=== PATIENT | female | born 1970 | race Caucasian/White ===

== ENCOUNTER 2022-07-05 11:19 | Emergency (ER) | payer MEDICAID, SELFPAY ==
[2022-07-05 11:32] VITALS: BP 126/76; PULSE 91; RESP 18; TEMP 36.7; O2SAT 98; BMI 28.1
[2022-07-05 11:44] VITALS: BP 126/76; PULSE 91; RESP 18; TEMP 36.7; O2SAT 98
== END 2022-07-05 11:46 | disposition left against medical advice (07) ==
LOC: ER 11:34 → UTC 11:34
PROVIDERS: Emergency Provider Nurse Practitioner Family
DX: Z53.21 Procedure and treatment not carried out due to patient leaving prior to being seen by health care provider (principal)

== ENCOUNTER 2023-04-15 17:42 | Emergency (ER) | payer MEDICAID, SELFPAY ==
[2023-04-15 17:43] VITALS: BP 120/72; PULSE 96; RESP 18; TEMP 36.7; O2SAT 98; BMI 27.4
--- NOTE | 2023-04-15 17:56 | XR_ITS ---
PROCEDURE INFORMATION: Exam: XR Left Hip Exam date and time: 04/15/2023 5:52 PM Age: 53 years old Clinical indication: Injury or trauma; Fall; Blunt trauma (contusions or hematomas); Left; Hip TECHNIQUE: Imaging protocol: Radiologic exam of the left hip. Views: 2 or 3 views hip with pelvis when performed. Total images: 3 COMPARISON: No relevant prior studies available. FINDINGS: Bones/joints: No evidence of acute fracture. No evidence of acute dislocation. Soft tissues: Soft tissue swelling is present. IMPRESSION: 1. Soft tissue swelling is present. 2. No evidence of acute fracture. 3. No evidence of acute dislocation.
--- NOTE | 2023-04-15 18:02 | HMH.EDGENADL ---
Discharge Plan Disposition Patient Disposition: Home, Self-Care Referrals Follow up/Referrals: Provider,Referral, MD [Primary Care Provider] - See instructions Activity Restrictions/Add. Instructions Additional Instructions/Restrictions: No evidence of fracture or dislocation on your x-rays today please take ibuprofen and use ice and rest the area as needed. You may follow-up with our orthopedic surgeon in 1 to 2 weeks if not significantly improving. Clinical Impressions Clinical Impression: Strain of left hip, Contusion of hip, left Discharge ED Provider: Karis Middleton General Adult HPI General Chief complaint: PAIN Stated complaint: [id number] fell and injured lt hip Time Seen by Provider: 04/15/23 18:02 Mode of Arrival: Ambulatory Source of Information: Patient Limitations: No Limitations Description of Symptoms (Recalled from ER Triage Doc. by RN): PT REPORTS FALL OFF 2 FOOT TALL PORCH, 2 DAYS AGO. REPORTS LEFT HIP PAIN. PT HAS AMBULATED History of Present Illness HPI narrative: Patient is a 53-year-old female who fell off of a porch several feet few days ago has persistent left hip pain ambulated upon arrival is here for further evaluation. Related Data Allergies Allergy/AdvReac Type Severity Reaction Status Date / Time Penicillins Allergy Verified [facility]15[facility]23 17:[facility] Disclaimer: The information contained in this section may have been updated after the patient was seen, as this information can be updated by other users. Social History Smoking Status: Current every day smoker alcohol intake: never current occupational status: other Travel in the last 8 weeks: None ROS Obtained: Yes All systems reviewed & no additional complaints except as documented Physical Exam General General appearance: alert Respiratory Respiratory exam: Present normal lung sounds bilaterally Cardiovascular Cardiovascular exam: Present regular rate; Absent tachycardia Abdominal Exam Abdominal exam: Present other (normal left hip exam aside from ttp, full rom, no soft tissue swelling nv intact ) Neurological Exam Neurological exam: Present alert Medical Decision Making Jake Inquiry Pt receiving controlled substance: No Vital Signs: 04/15/23 17:43 Temperature 98.1 F Temperature Source Oral Pulse Rate [Radial] 96 H Respiratory Rate 18 Blood Pressure [Right Arm] 120/72 Blood Pressure Mean [Right Arm] 88 Blood Pressure Source [Right Arm] Automatic Cuff Blood Pressure Position [Right Arm] Sitting 02 Sat by Pulse Oximetry 98 Oxygen Delivery Method Room Air Orders (Tests/Meds): ORDERS Category Date Time Status XR hip LT 2-3V w/pelvis Stat Exams 04/15/23 17:56 Completed Medical Decision Narrative: fall, ddx includes fx dx and contusion/strain XR ordered and will reassess X-rays performed which I personally interpreted shows no acute fractures dislocation patient able to ambulate without difficulty this will be treated as a strain/contusion. Supportive care discussed she was discharged in stable condition. Critical Care Critical Care Time Critical Care Time: No
--- NOTE | 2023-04-15 18:07 | PC.NURSE ---
PT RETURNED FROM XR
[2023-04-15 18:47] VITALS: BP 143/70; PULSE 94; RESP 18; TEMP 36.7; O2SAT 100
== END 2023-04-15 18:50 | disposition home or self-care (01) ==
PROVIDERS: Emergency Provider Student in an Organized Health Care Education/Training Program
DX: S76.012A Strain of muscle, fascia and tendon of left hip, initial encounter (principal); S70.02XA Contusion of left hip, initial encounter; F17.200 Nicotine dependence, unspecified, uncomplicated; W17.89XA Other fall from one level to another, initial encounter
CPT/HCPCS: 73502; 99283

== ENCOUNTER 2023-07-02 18:57 | Outpatient (CLI) | payer MEDICAID, SELFPAY ==
[2023-07-02 18:38] LABS: Basophils # 0.1 K/mm3 (0-0.2); Basophils % 1.8 % (0.1-2.0); Eosinophils # 0.2 K/mm3 (0.0-0.4); Eosinophils % 2.8 % (0.1-12.0); Hemoglobin 15.3 g/dL (12.2-16.2); Lymphocytes # 2.1 K/mm3 (0.7-4.5); Mean Corpuscular HGB Conc 32.6 g/dL (31.8-35.4); Mean Corpuscular Hemoglobin 32.1 pg (27.0-31.2); Mean Corpuscular Volume 98.5 fl (81-99); Mean Platelet Volume 9.7 fl (7.4-10.4); Monocytes # 0.2 K/mm3 (0.1-1.0); Monocytes % 3.8 % (1.7-9.3); Neutrophils # 3.4 K/mm3 (1.8-7.8); Neutrophils % 56.7 % (37.0-80.0); Platelet Count 224 K/mm3 (142-424); Red Blood Count 4.77 M/mm3 (4.20-5.40); Red Cell Distribution Width 13.1 % (11.5-17.5)
[2023-07-02 18:52] LABS: Chloride 106 mmol/L (98-107); Potassium 4.7 mmoL/L (3.5-5.1); Sodium 138 mmol/L (136-145)
[2023-07-02 18:54] LABS: Blood Urea Nitrogen 16 mg/dl (7-17); Estimated Glomerular Filt Rate 105 ml/min (>60); GFR (African American) 127 ML/MIN (>60)
[2023-07-02 18:55] LABS: Alanine Aminotransferase 15 U/L (12-78); Albumin Level 4.3 g/dl (3.5-5.0); Albumin/Globulin Ratio 1.4 (1.1-1.8); Alkaline Phosphatase 79 U/L (38-126); Anion Gap 6.7 mEq/L (5-15); Aspartate Amino Transferase 29 U/L (14-36); Bilirubin,Total 0.3 mg/dl (0.2-1.3); Calcium 9.9 mg/dl (8.4-10.2); Carbon Dioxide 30 mmol/L (22.0-30.0); Chol/HDL Ratio 3.5 (1-3.5); Cholesterol 225 mg/dl (140-200); Globulin 3.1 g/dL (1.3-3.2); Glucose 103 mg/dl (74-100); HDL Cholesterol 65 mg/dl (40-60); Total Protein,Serum 7.4 g/dl (6.3-8.2); Triglycerides 183 mg/dl (30-150); VLDL Cholesterol 37 mg/dL (0-40)
[2023-07-02 19:12] LABS: Direct LDL Cholesterol 100.88 mg/dL (100-129)
[2023-07-02 19:25] LABS: Thyroid Stimulating Hormone 0.83 uIU/mL (0.465-4.68)
[2023-07-02 19:46] LABS: Hemoglobin A1C 5.7 % (4.0-6.0)
== END 2023-07-02 23:59 ==
LOC: LAB.DROPOF 18:57
PROVIDERS: PCP Family Medicine; Visit Provider Family Medicine
DX: R73.09 Other abnormal glucose (principal); E78.1 Pure hyperglyceridemia; E78.00 Pure hypercholesterolemia, unspecified; E55.9 Vitamin D deficiency, unspecified; R01.1 Cardiac murmur, unspecified
CPT/HCPCS: 80053; 80061; 82306; 83036; 84443; 85025

== ENCOUNTER 2024-06-12 06:57 | Emergency (ER) | payer MEDICAID, SELFPAY ==
[2024-06-12 07:02] VITALS: BP 140/83; PULSE 97; RESP 20; TEMP 37; O2SAT 97; BMI 29.8
--- NOTE | 2024-06-12 07:02 | ECG_ITS ---
APPROVED REPORT Exam: Resting ECG HR:90 bpm ECG Measurements Heart Rate 90 AXES IA 112 P 72 QRSd 88 QRS 78 QT 358 T 52 QTc 406 Conclusion SINUS RHYTHM WITH SHORT IA INTERVAL LEFT VENTRICULAR HYPERTROPHY AND ST-T CHANGE [VOLTAGE CRITERIA PLUS ST/T ABNORMALITY] ABNORMAL ECG UNCONFIRMED REPORT Electronically signed by : Harsh Middleton, 06/12/2024 15:35:01
--- NOTE | 2024-06-12 07:09 | XR_ITS ---
PROCEDURE INFORMATION: Exam: XR Chest Exam date and time: 06/12/2024 7:13 AM Age: 54 years old Clinical indication: Dyspnea TECHNIQUE: Imaging protocol: Radiologic exam of the chest. Views: 1 view. COMPARISON: No relevant prior studies available. FINDINGS: Lungs: Multiple small old calcified granulomas in each lung. No definite acute pulmonary infiltrates identified. Pleural spaces: Unremarkable. No pleural effusion. No pneumothorax. Heart/Mediastinum: Unremarkable. No cardiomegaly. Bones/joints: Unremarkable. IMPRESSION: Multiple old calcified granulomas in each lung but no radiographic evidence of acute cardiopulmonary disease.
--- NOTE | 2024-06-12 07:11 | ED_ITS ---
Discharge Plan Disposition Patient Disposition: Home, Self-Care Prescriptions Prescriptions: New albuterol sulfate 90 mcg/actuation HFA aerosol inhaler 4 inh inhalation Q4H PRN (Reason: shortness of breath or wheezing) Qty: 8.5 0RF Rx Instructions: 4 puffs every 4 hours for 48 hours then as needed for shortness of breath or wheezing following doxycycline hyclate 100 mg capsule 100 mg PO BID 10 Days Qty: 20 0RF benzonatate 100 mg capsule 100 mg PO TID PRN (Reason: cough) 5 Days Qty: 20 0RF No Action ergocalciferol (vitamin D2) [Vitamin D2] 1,250 mcg (50,000 unit) capsule 1,250 mcg PO WEEKLY Qty: 5 2RF Referrals Follow up/Referrals: ProviderMario MD [Primary Care Provider] - See instructions Janie Jarrell MD [Physician] - See instructions Activity Restrictions/Add. Instructions Additional Instructions/Restrictions: Please follow-up with her lung doctor and return with any significant or worsening of medical problems. A referral has been made to our lung doctor and is included in this discharge paperwork. Clinical Impressions Clinical Impression: Acute exacerbation of chronic obstructive pulmonary disease, Finger clubbing Print Language Print Language: Lao Discharge ED Provider: Karis Middleton General Adult HPI General Chief complaint: Upper Respiratory Infection Stated complaint: SOA Time Seen by Provider: 06/12/24 07:02 Mode of Arrival: Ambulatory Source of Information: Patient Description of Symptoms (Recalled from ER Triage Doc. by RN): Pt states she is being treated with antibiotics for lung issue and not better History of Present Illness HPI narrative: Patient is a 54-year-old presenting today with dyspnea. She states that she has been short of breath for several weeks. She has not seen a doctor in 10 years up until last . Family member of lung cancer which she is somewhat concerned about. Was diagnosed in the remote past with COPD as she has an extensive history of smoking continues to smoke but is not on any controller medications for that nor has she seen a hotel maintenance worker. Over the last 48 hours her breathing is significantly worsened. She states that she has increased wheezing cough as well. No fevers or chills. No chest pain. Related Data Previous Rx's ?Medication ?Instructions ?Recorded ergocalciferol (vitamin D2) 1,250 1,250 mcg PO WEEKLY #5 caps 07/09/23 mcg (50,000 unit) capsule (Vitamin D2) albuterol sulfate 90 mcg/actuation 4 inh inhalation Q4H PRN shortness 06/12/24 aerosol inhaler of breath or wheezing #8.5 grams benzonatate 100 mg capsule 100 mg PO TID PRN cough 5 days #20 06/12/24 caps doxycycline hyclate 100 mg capsule 100 mg PO BID 10 days #20 caps 06/12/24 Allergies Allergy/AdvReac Type Severity Reaction Status Date / Time Penicillins Allergy Verified 07/02/23 15:04 [facility] Disclaimer: The information contained in this section may have been updated after the patient was seen, as this information can be updated by other users. Medical History (Updated 06/12/24 @ 07:10 by Karis Middleton MD) Heart murmur COPD (chronic obstructive pulmonary disease) Umbilical hernia Surgical History (Updated 07/02/23 @ 15:12 by Cassi Markham MA) History of tubal ligation Family History (Updated 07/02/23 @ 15:13 by Casis Markham MA) Other Cancer Thyroid disorder Social History (Updated 04/15/23 @ 18:40 by Karis Middleton MD) Smoking Status: Current every day smoker alcohol intake: never current occupational status: other Travel in the last 8 weeks: None Have you lived/traveled outside [place] in past 30 days?: No Contact w/someone who lives/traveled outside US past 30 days?: No Exposure to someone with infectious disease in past 14 days?: No Do you have a fever (greater than 100.4 F or 38 C)?: No Have you tested positive for COVID-19: No Exposed to someone with COVID-19 in past 14 days?: No Do you have a sore throat?: No Do you have a cough?: No Do you have any weakness?: No Do you have any diarrhea?: No Are you experiencing any unusual bleeding?: No Do you have any muscle aches/pain?: No Do you have any abdominal pain?: No Are you experiencing loss of taste or smell?: No ROS Obtained: Yes All systems reviewed & no additional complaints except as documented Physical Exam General General appearance: alert and in no apparent distress Respiratory Respiratory exam: Present wheezes (Diffuse expiratory wheezing and prolonged expiratory phase but no significant respiratory distress oxygen saturations upper 90s on room air) Cardiovascular Cardiovascular exam: Present regular rate and normal rhythm Neurological Exam Neurological exam: Present alert and oriented X3 Medical Decision Making Medical Records Screening: Per USPSTF and CDC recommendations, given the prevalence of disease in our region, it is our hospital?s policy to screen for HIV and viral Hepatitis for all patients aged 18 and over and those with ongoing risk factors. Jake Inquiry Pt receiving controlled substance: No Vital Signs: 06/12/24 07:02 Temperature 98.6 F Temperature Source Oral Pulse Rate [Right Brachial] 97 H Respiratory Rate 20 Blood Pressure [Right Arm] 140/83 Blood Pressure Mean [Right Arm] 102 Blood Pressure Source [Right Arm] Automatic Cuff Blood Pressure Position [Right Arm] Sitting 02 Sat by Pulse Oximetry 97 Oxygen Delivery Method Room Air Lab Data Lab results reviewed: Yes I reviewed the patient's lab results. Lab Results 06/12/24 07:09: VBG pH 7.42 H, VBG pCO2 36.9, VBG pO2 65.7 H, VBG HCO3 23.3, VBG Total CO2 24.4, VBG O2 Saturation 93.5 H, VBG Base Excess -1.2, VBG Lactic Acid 1.1 06/12/24 07:11: WBC 8.9, RBC 4.40, Hgb 13.6, Hct 38.2, MCV 86.8, MCH 30.9, MCHC 35.6 H, RDW 12.2, Plt Count 243, MPV 10.2, Neut % (Auto) 52.5, Lymph % (Auto) 39.7, [place] % (Auto) 6.3, Eos % (Auto) 0.6, Baso % (Auto) 0.6, Neut # (Auto) 4.7, Lymph # (Auto) 3.5, [place] # (Auto) 0.6, Eos # (Auto) 0.1, Baso # (Auto) 0.1, D- Dimer < 0.25, Sodium 139, Potassium 3.5, Chloride 107, Carbon Dioxide 25, Anion Gap 10.5, BUN 15, Creatinine 0.60, Estimated Creat Clear 125, Estimated GFR 104, Est GFR ( Amer) 126, Glucose 108 H, Calcium 9.7, Total Bilirubin 0.3, AST 30, ALT 20, Alkaline Phosphatase 85, Troponin I < 0.01, NT-Pro-B Natriuret Pep 134 H, Total Protein 7.8, Albumin 4.9, Globulin 2.9, Albumin/Globulin Ratio 1.7 06/12/24 08:10: SARS-CoV-2 (PCR) Not detected, Influenza A Untype (PCR) Not detected, Influenza Type B (PCR) Not detected 06/12/24 07:11 06/12/24 07:11 Orders (Tests/Meds): ED MEDICATIONS Discontinued Medications Generic Name Dose Route Start Last Admin Trade Name Freq PRN Reason Stop Dose Admin Albuterol/Ipratropium 3 ml 06/12/24 07:08 06/12/24 07:30 Ipratropium/Albuterol 3 Ml Neb IH 06/12/24 07:09 3 ml ONCE ONE Administration Dexamethasone Sodium Phosphate 10 mg 06/12/24 07:08 06/12/24 07:30 Dexamethasone 4mg/Ml 1ml Vial IV 06/12/24 07:09 10 mg ONCE ONE Administration Lactated Ringer's 1,000 mls @ 999 mls/hr 06/12/24 07:15 06/12/24 07:30 Lactated Ringer's 1000 Ml Bag IV 06/12/24 08:15 999 mls/hr .Q1H1M RICCARDO Administration Magnesium Sulfate 2 gm in 50 mls @ 50 mls/hr 06/12/24 07:08 06/12/24 07:30 Magnesium Sulfate 2gm/50ml Premix IV 06/12/24 08:07 50 mls/hr ONCE ONE Administration ORDERS Category Date Time Status CXR --portable [XR chest portable] Stat Exams 06/12/24 07:09 Completed BNP [NT Pro Brain Natriuretic Pep.] Stat Lab 06/12/24 07:11 Completed CBC w/Auto Diff [Complete Blood Count Auto Diff] Stat Lab 06/12/24 07:11 Completed CMP [Comprehensive Metabolic Panel] Stat Lab 06/12/24 07:11 Completed D-Dimer Stat Lab 06/12/24 07:11 Completed Rapid PCR Covid and Flu A/B Stat Lab 06/12/24 08:10 Completed Trop I [Troponin I] Stat Lab 06/12/24 07:11 Completed Troponin I Q3H Lab 06/12/24 10:15 Ordered Troponin I Q3H Lab 06/12/24 13:15 Ordered Venous Blood Gas Stat RT 06/12/24 07:09 Completed ECG Data Tracing #1: I reviewed this ECG and interpreted as documented below: Ventricular rate of 90 normal sinus rhythm no acute ischemic changes noted normal axis no significant conduction abnormalities however there is EKG criteria met for LVH Medical Decision Narrative: 54-year-old female presenting today with increased cough shortness of breath and wheezing on exam and from historical standpoint all concerning and consistent with a COPD exacerbation. Other things in the differential would include pulmonary embolism heart failure lung cancer pneumonia etc. Chest x-ray was performed which I personally interpreted which shows no evidence of acute or dense consolidation or other definitive acute or emergent pathology. Nebs steroids and magnesium have been administered anticipate giving her antibiotics will reassess shortly. Reassessment at 9:11 AM patient feeling much better serial respiratory exams are improved and normal. Radiology read was consistent with my other than some chronic granulomatous abnormalities. Labs otherwise unremarkable. Patient was discharged in improved and stable condition antibiotics and albuterol were sent to her pharmacy. Pulmonology referral was also made. Return precautions were emphasized and understood. Critical Care Critical Care Time Critical Care Time: Yes Attestation: On 06/12/24, the high probability of a clinically significant, sudden or life threatening deterioration of the following system(s) required my full and direct attention, intervention and personal management. The time I documented below is in addition to time spent performing reported procedures but includes the following listed in this critical care notation. Total Time Total Critical Care Time: 35
[2024-06-12 07:25] LABS: Basophils # 0.1 K/mm3 (0-0.2); Basophils % 0.6 % (0.1-2.0); Eosinophils # 0.1 K/mm3 (0.0-0.4); Eosinophils % 0.6 % (0.1-12.0); Hematocrit 38.2 % (37.0-47.0); Hemoglobin 13.6 g/dL (12.2-16.2); Lymphocytes # 3.5 K/mm3 (0.7-4.5); Lymphocytes % 39.7 % (10-50); Mean Corpuscular HGB Conc 35.6 g/dL (31.8-35.4); Mean Corpuscular Hemoglobin 30.9 pg (27.0-31.2); Mean Corpuscular Volume 86.8 fl (81-99); Mean Platelet Volume 10.2 fl (7.4-10.4); Monocytes # 0.6 K/mm3 (0.1-1.0); Monocytes % 6.3 % (1.7-9.3); Neutrophils # 4.7 K/mm3 (1.8-7.8); Neutrophils % 52.5 % (37.0-80.0); Platelet Count 243 K/mm3 (142-424); Red Cell Distribution Width 12.2 % (11.5-17.5); White Blood Count 8.9 K/mm3 (4.8-10.8)
[2024-06-12] MEDS: IPRATROPIUM/ALBUTEROL 3 ML NEB IH (07:30)
[2024-06-12] MEDS: LACTATED RINGERS 1000ML 1,000 ML 999 ML IV (07:30)
[2024-06-12] MEDS: DEXAMETHASONE 4MG/ML 1ML VIAL 10 MG IV (07:30)
[2024-06-12] MEDS: MAGNESIUM SULFATE IN WATER 2 GM/50 ML PIGGYBACK IV (07:30)
[2024-06-12 07:31] LABS: Lactate Venous 1.1 mmol/L (0.4-2.0); VBG Base Excess -1.2 mmol/L (-2.4-2.3); VBG HCO3 23.3 mmol/L (23-30); VBG Oxygen Saturation 93.5 % (50-70); VBG PCO2 36.9 mmol/L (35-51); VBG PH 7.42 mmol/L (7.31-7.41); VBG PO2 65.7 mmol/L (28-40); VBG Total CO2 24.4 mmol/L (23-27)
[2024-06-12 07:37] LABS: Alanine Aminotransferase 20 U/L (12-78); Albumin Level 4.9 g/dl (3.5-5.0); Albumin/Globulin Ratio 1.7 (1.1-1.8); Alkaline Phosphatase 85 U/L (38-126); Anion Gap 10.5 mEq/L (5-15); Aspartate Amino Transferase 30 U/L (14-36); Bilirubin,Total 0.3 mg/dl (0.2-1.3); Blood Urea Nitrogen 15 mg/dl (7-17); Calcium 9.7 mg/dl (8.4-10.2); Carbon Dioxide 25 mmol/L (22.0-30.0); Chloride 107 mmol/L (98-107); Creatinine Clearance Estimated 125 mL/min (50-200); Estimated Glomerular Filt Rate 104 ml/min (>60); GFR (African American) 126 ML/MIN (>60); Globulin 2.9 g/dL (1.3-3.2); Glucose 108 mg/dl (74-100); Potassium 3.5 mmoL/L (3.5-5.1); Sodium 139 mmol/L (136-145); Total Protein,Serum 7.8 g/dl (6.3-8.2)
[2024-06-12 07:42] LABS: D-Dimer < 0.25 ug/mL (0.0-0.5)
[2024-06-12 07:51] LABS: NT Pro Brain Natriuretic Pep. 134 pg/mL (0-125)
[2024-06-12 08:06] LABS: Troponin I < 0.01 ng/ml (0.00-0.034)
[2024-06-12 08:14] LABS: Coronavirus 19, PCR Not Detected (NotDetected); Influenza A, PCR Not Detected (NotDetected); Influenza B, PCR Not Detected (NotDetected)
[2024-06-12 09:31] VITALS: BP 117/68; PULSE 62; RESP 17; TEMP 36.7; O2SAT 97
== END 2024-06-12 09:32 | disposition home or self-care (01) ==
PROVIDERS: Emergency Provider Student in an Organized Health Care Education/Training Program
DX: J44.1 Chronic obstructive pulmonary disease with (acute) exacerbation (principal); R68.3 Clubbing of fingers; R06.02 Shortness of breath; R06.00 Dyspnea, unspecified; R05.9 Cough, unspecified; R06.2 Wheezing; Z72.0 Tobacco use
CPT/HCPCS: 71045; 80053; 82803; 83880; 84484; 85025; 85378; 87636; 93005; 96361; 96365; 96374; 99291; J1100; J3475; J7120; J7620